=== PATIENT | female | born 1990 | race Two or more races ===

== ENCOUNTER 2022-03-28 23:37 | Emergency (ER) | payer OTHER ==
[~2022-03-28] VITALS: Ht 170.2 cm; Wt 61.2 kg
[2022-03-28 23:45] VITALS: BP 109/59
== END 2022-03-29 06:24 | disposition home or self-care (01) ==
LOC: ER 23:40
DX: J02.9 Acute pharyngitis, unspecified (principal); R51.9 Headache, unspecified; R05.9 Cough, unspecified; R06.00 Dyspnea, unspecified
CPT/HCPCS: 71045-TC